=== PATIENT | female | born 1940 | race Caucasian/White ===

== ENCOUNTER 2016-11-07 14:59 | Emergency (ER) | payer OTHER ==
[~2016-11-07 14:59] MED LIST: ATIVAN1 MG PO; COQ-10100 MG PO; FERROUS SULFAT325 MG PO; GRAPE SEED50 M1 PO; LOVENOX SY30 MG/0.3 SQ; NORCO 7.5-3251 EACH PO; PROTONIX 40 MG40 M1 PO; SEROQUEL25 MG PO; VITAMIN B12-FO1 EACH PO; VITAMIN C 500500 MG PO; VITAMIN K100 MCG PO
[2016-11-07 16:55] LABS: HEMOGLOBIN 12.5 gm/dl (12.3-15.3); RED BLOOD COUNT 4.09 M/UL (4.00-5.10)
[2016-11-07 17:20] LABS: BUN/CREATININE RATIO 29 (0-10)
== END 2016-11-07 20:50 | disposition left against medical advice (07) ==
LOC: ER1 14:59
PROVIDERS: Student in an Organized Health Care Education/Training Program
DX: R55 Syncope and collapse (principal); N30.01 Acute cystitis with hematuria; F41.9 Anxiety disorder, unspecified
CPT/HCPCS: 36415; 70450; 71010; 72125; 80053; 81001; 82550; 82553; 83874; 84443; 84484; 85025; 85610; 85730; 87086; 93005; 99284; J7030